=== PATIENT | male | born 1990 | race Caucasian/White ===

== ENCOUNTER 2016-11-10 10:25 | Emergency (ER) | payer BC ==
[2016-11-10] MEDS ORDERED: Doxycycline 100 MG Cap PO ONE (11:00)
[2016-11-10] MEDS ORDERED: Lactated Ringers 1,000 ML IV ONE (11:41)
[2016-11-10] MEDS ORDERED: Haloperidol Lactate 5 MG/ML SDV IM ONE (11:41)
[2016-11-10] MEDS ORDERED: Sodium Chloride 0.9% 10 ML Syringe FLUSH PRN (11:41)
[2016-11-10] MEDS ORDERED: diphenhydrAMINE 50 MG/ML SDV IVPUSH ONE (11:41)
[2016-11-10] MEDS ORDERED: Ketorolac 30 MG/ML SDV IVPUSH ONE (11:42)
--- NOTE | 2016-11-10 12:08 | EDM.PDOC ---
ED HPI HEADACHE COMPLAINT - General Chief Complaint: Headache Stated Complaint: HEADACHE/RINGING IN EARS/NUMBNESS ALL OVER Time Seen by Provider: 11/10/16 11:47 Source of Information: Reports: Patient, Old records (MRI from 10-21-16) History Limitations: Reports: No limitations - History of Present Illness INITIAL COMMENTS - FREE TEXT/NARRATIVE: Patient presents for evaluation and treatment of a headache. Patient reports a severe headache located in the back of the skull for the last month. States that he was seen by neurology about 2 weeks ago. He was diagnosed with migraines. He states he is put on some medication but he felt this did not help. States he took this for a week and a half but then stopped it. Reports associated symptoms of photophobia, decreased sleep, decreased appetite, nausea , dizziness and lightheadedness. He also reports blurry vision. He denies any vomiting, double vision, fevers, chills, cough, ear pain or sinus pain. Also reports that he has been having some ringing in his ears that has lasted 1-2 minutes and subside. He alos reports some tingling in his arms that lasts a few minutes and then goes away. He said he has been using ibuprofen which has not helped with his headache. Current medications include ibuprofen, vitamin D and the medication his primary care provider prescribed him for sleep. Patient reports that he did see his primary care provider about 1-2 weeks ago. She gave him some Tylenol number threes and a medication to help sleep. States that Tylenol No. 3 did not help with the pain. Patient reports that he has an arachnoid cyst. This was diagnosed as a teenager. He did have an MRI performed on 10-21-16. Only finding was an arachnoid cyst which measures approximately 3.9 cm x 2.6 cm. The patient reports as a teenager he had to have an LP x2 over a short course of time to help relieve pressure. States that he did have high intracranial pressures. He only had to have these LPs that one time and it relieved his headache. - Related Data Allergies/ADRs: Allergies Allergy/AdvReac Type Severity Reaction Status Date / Time No Known Allergies Allergy Verified 11/10/16 10:40 Home Meds: Home Meds Cholecalciferol (Vitamin D3) [Vitamin D] 1 tab PO WEEKLY 11/10/16 [History] SUMAtriptan [Imitrex] 25 mg PO Q2H PRN #10 tablet 11/10/16 [Rx] Past Medical History HEENT History: Reports: Impaired vision Neurological History: Reports: Other (see below) Other Neuro History: arachnoid cyst - Infectious Disease History Infectious Disease History: Reports: Chicken pox - Past Surgical History Musculoskeletal Surgical History: Reports: Other (see below) Other Musculoskeletal Surgeries/Procedures:: hernia repair Social & Family History - Tobacco Use Smoking Status *Q: Never Smoker Second Hand Smoke Exposure: No - Caffeine Use Caffeine Use: Reports: None - Recreational Drug Use Recreational Drug Use: No ED ROS GENERAL - Review of Systems Review Of Systems: See Below Constitutional: Reports: fatigue, decreased appetite. Denies: fever, chills HEENT: Reports: Vision change (blurry vision; denies double vision), Other ( reports tinnitus lasting 1-2 minutes). Denies: Ear pain, Sinus problem Respiratory: Denies: Cough Cardiovascular: Reports: Lightheadedness GI/Abdominal: Reports: Nausea. Denies: Vomiting Neurological: Reports: Dizziness, Headache, Numbness, Tingling - Physical Exam Exam: See Below Exam Limited By: No limitations General Appearance: alert, WD/WN, mild distress Eye Exam: bilateral eye: EOMI, PERRL Ears: normal external exam, normal canal, other (right TM normal; left TM is obscured by cerumen) Nose: normal inspection Throat/Mouth: Normal inspection, Normal voice, No airway compromise Neck: full range of motion Respiratory/Chest: no respiratory distress, lungs clear, normal breath sounds Cardiovascular: normal peripheral pulses, regular rate, rhythm, no murmur Neuro Exam (Abbreviated): alert, oriented, normal cognition Psychiatric: normal affect, normal mood Skin Exam: Warm, Dry, Normal color Course - Vital Signs Last Recorded V/S: Last Vital Signs Temp 36.1 C 11/10/16 10:32 Pulse 70 11/10/16 14:42 Resp 16 11/10/16 14:42 BP 108/82 11/10/16 14:42 Pulse Ox 97 11/10/16 14:42 - Orders/Labs/Meds Orders: Active Orders 24 hr Category Date Time Status Peripheral IV Care [RC] . DIRECTED Care 11/10/16 11:41 Active Peripheral IV Insertion Adult [OM.PC] Routine Oth 11/10/16 11:41 Ordered Labs: Laboratory Tests 11/10/16 11/10/16 Range/Units 11:55 11:55 WBC 5.62 (4.23-9.07) K/mm3 RBC 4.70 (4.63-6.08) M/mm3 Hgb 14.5 (13.7-17.5) gm/L Hct 41.8 (40.1-51.0) % MCV 88.9 (79.0-92.2) fl MCH 30.9 (25.7-32.2) pg MCHC 34.7 (32.2-35.5) g/dl RDW Std Deviation 39.8 (35.1-43.9) fL Plt Count 269 (163-337) K/mm3 MPV 9.2 L (9.4-12.3) fl Sodium 143 (136-145) mEq/L Potassium 4.3 (3.5-5.1) mEq/L Chloride 109 H (98-107) mEq/L Carbon Dioxide 28 (21-32) mEq/L Anion Gap 10.3 (5-15) BUN 13 (7-18) mg/dL Creatinine 1.3 (0.7-1.3) mg/dL Est Cr Clr Drug Dosing 101.11 mL/min Estimated GFR (MDRD) > 60 (>60) mL/min BUN/Creatinine Ratio 10.0 L (14-18) Glucose 95 (74-106) mg/dL Calcium 8.3 L (8.5-10.1) mg/dL Magnesium 1.9 (1.8-2.4) mg/dl Total Bilirubin 0.4 (0.2-1.0) mg/dL AST 20 (15-37) U/L ALT 63 (16-63) U/L Alkaline Phosphatase 104 (46-116) U/L Total Protein 6.4 (6.4-8.2) g/dl Albumin 3.2 L (3.4-5.0) g/dl Globulin 3.2 gm/dL Albumin/Globulin Ratio 1.0 (1-2) TSH 3rd Generation 0.901 (0.358-3.74) uIU/mL Meds: Medications Discontinued Medications Generic Name Dose Route Start Last Admin Trade Name Freq PRN Reason Stop Dose Admin Dexamethasone 4 mg 11/10/16 13:12 11/10/16 13:21 Dexamethasone IVPUSH 11/10/16 13:13 4 mg ONETIME ONE Administration Diphenhydramine HCl 50 mg 11/10/16 11:41 11/10/16 12:02 Benadryl IVPUSH 11/10/16 11:42 50 mg ONETIME ONE Administration Doxycycline Hyclate 200 mg 11/10/16 11:00 11/10/16 11:08 Vibramycin PO 11/10/16 11:01 Not Given ONETIME ONE Haloperidol Lactate 5 mg 11/10/16 11:41 11/10/16 12:15 Haldol IM 11/10/16 11:42 5 mg ONETIME ONE Administration Lactated Ringer's 1,000 mls @ 999 mls/hr 11/10/16 11:41 11/10/16 12:01 Ringers, Lactated IV 11/10/16 12:41 999 mls/hr .BOLUS ONE Administration Ketorolac Tromethamine 30 mg 11/10/16 11:42 11/10/16 12:05 Toradol IVPUSH 11/10/16 11:43 30 mg ONETIME ONE Administration Prochlorperazine Edisylate 5 mg 11/10/16 13:12 11/10/16 13:18 Compazine IVPUSH 11/10/16 13:13 5 mg ONETIME ONE Administration Sodium Chloride 10 ml 11/10/16 11:41 11/10/16 12:07 Saline Flush FLUSH 10 ml ASDIRECTED PRN Administration Keep Vein Open - Re-Assessments/Exams Free Text/Narrative Re-Assessment/Exam: 11/10/16 13:20 Patient reports no change in symptoms after the IM Tylenol, IV Benadryl and IV Toradol. Will give 4 mg of IV dexamethasone and 5 mg of IV Compazine. Labs returned. WBC is 5.62, hgb is 14.5 and plts are 269 Sodium is 143, potassium is 4.3 chloride is 109. Anion gap is 10.3. Glucose is 95. Magnesium is 1.9. TSH is 0.91. 11/10/16 14:07 Patient feels greatly improved after IV dexamethasone. Discussed migraine treatment with the patient. Will try imitrex for future migraine reilef. Departure - Departure Time of Disposition: 14:09 Disposition: Home, Self-Care 01 Condition: good Clinical Impression: Migraine Prescriptions: SUMAtriptan [Imitrex] 25 mg PO Q2H PRN #10 tablet PRN Reason: Headache Instructions: Migraine Headache, [id number] Referrals: Vani Moran [facility]CE[facility]IST [Primary Care Provider] - Forms: ED Department Discharge Additional Instructions: Take the imitrex as prescribed. 1 tab at onset of migraine, may repeat in 2 hours if not better; max of 100mg/24 hours. Follow-up with PCP within 2 weeks for a recheck on your migraines. Rest today. Drink plenty of fluids. Please return to the ER should your symptoms change or worsen. - My Orders Last 24 Hours: My Active Orders 11/10/16 11:41 Peripheral IV Care [RC] . DIRECTED Peripheral IV Insertion Adult [OM.PC] Routine - Assessment/Plan Last 24 Hours: My Active Orders 11/10/16 11:41 Peripheral IV Care [RC] . DIRECTED Peripheral IV Insertion Adult [OM.PC] Routine
[2016-11-10] MEDS ORDERED: Dexamethasone 4 MG/ML SDV IVPUSH ONE (13:12)
[2016-11-10] MEDS ORDERED: Prochlorperazine 10 MG/2 ML SDV IVPUSH ONE (13:12)
[2016-11-10 14:44] VITALS: BP 108/82
== END 2016-11-10 14:20 | disposition home or self-care (01) ==
LOC: JD.ED 10:25
DX: G43.909 Migraine, unspecified, not intractable, without status migrainosus (principal)
CPT/HCPCS: 36415; 80053; 83735; 84443; 85027; 96361; 96372; 96374; 96375; 99284; J0780; J1100; J1200; J1630; J1885; J7050; J7120